=== PATIENT | male | born 1950 | race Caucasian/White ===

== ENCOUNTER → 2019-08-19 | Day surgery (SDC) | payer MEDICARE, BC ==
[~2019-08-19] MED LIST: ACETAMINOPHEN 325 MG TABLET PO PRN; ALBUTEROL SULFATE 2.5 MG/3 ML NEBU. NEB PRN; ATROPINE 0.5 MG/5 ML DISP.SYRIN. IV PRN; BALANCED SALT IRRIG OPHTH SOLN 15 ML BOTTLE. IRR ONE; CATARACT OPHTH GEL 0.5 ML SYRINGE. OS ONE; CHONDROIT-SOD-HYALURONATE KIT. OS ONE; DUTA0.5C PO; EPINEPHrine AMPULE 0.5 MG in BALANCED SALT IRRIG SOLN PLUS 500 ML IO ONE; ERYTHROMYCIN 0.5% OPHTH OINTMENT 1GM TUBE. OS ONE; HYALURONIDASE 75UNITS in LIDOCAINE 2% PF OPHTH 10 ML SYRINGE. OS ONE; KETOROLAC TROMETHAMINE 0.5% OPHTH SOLUTION BOTTLE. ONE; KETOROLAC TROMETHAMINE 0.5% OPHTH SOLUTION BOTTLE. OS SCH; LIDO/EPI IN BSS OPHTH 4 ML SYRINGE OS ONE; MOXIFLOXACIN 0.5% OPHTH SOLUTION 3ML BOTTLE. OS SCH; ONDANSETRON PF 4 MG/2 ML VIAL. IV PRN; POVIDONE-IODINE 5% OPHTH SOLUTION 30ML BOTTLE. OS ONE; PROPOFOL 20 ML IV ONE; TETRACAINE 0.5% OPHTH SOLUTION 4ML BOTTLE. OS ONE; TETRACAINE 0.5% OPHTH SOLUTION 4ML BOTTLE. OU ONE; diphenhydrAMINE 50 MG/ML VIAL IV PRN; prednisoLONE ACETATE 1% OPHTH SUSPENSION 5ML BOTTLE. ONE; prednisoLONE ACETATE 1% OPHTH SUSPENSION 5ML BOTTLE. OS SCH
[2019-08-19] MEDS: MOXIFLOXACIN 0.5% OPHTH SOLUTION 3ML BOTTLE. OS SCH ×3 (10:13→10:28)
--- NOTE | 2019-08-19 11:04 | PDOC4 ---
Phaco/Toric IOL/OS Date of Procedure: Aug 19, 2019 Preoperative Doagnosis: 1. Senile Cataract, OS 2. Corneal astigmatism, OS Postoperative Diagnosis: 1. Senile Cataract, OS 2. Corneal astigmatism, OS Anesthesia: Local with monitored anesthesia care Surgeon: Vane Russ D.O. Procedure: Phacoemulsification with toric intraocular lens implant, OS Findings: 1. Senile Cataract, OS 2. Corneal astigmatism, OS Indications: Worsening vision interfering with patient's lifestyle Narrative: After discussing the risks, complications and alternatives, including but not limited to loss of vision, infection, bleeding, swelling, anesthetic reaction, capsule rupture with vitreous loss, etc., the patient was given topical anesthetic in the eye. The eye was then marked at the 3, 6 and 9 o'clock limbus. Nicol-ocular anesthesia was given and a [place] Balloon was applied for 10 minutes. The patient was transferred to the main operating room and was prepped and draped in the usual sterile fashion and positioned under the microscope. A lid speculum was placed. A temporal clear corneal incision was made with a keratome and viscoelastic was injected into the anterior chamber. A 5.5 mm diameter corneal jose was placed. A side port incision was made. A continuous tear capsulorrhexis was performed, then hydrodissection was accomplished with balanced salt solution. They phacoemulsification needle was placed in the eye and the nucleus was emulsified. The remaining cortical material was removed with the irrigation and aspiration apparatus. The capsule was polished as needed. The posterior capsule was noted to be clean and intact. Viscoelastic was injected into the eye inflating the capsular bag. The cornea was marked at the appropriate meridian for toric IOL implantation. An intraocular lens was injected into the eye, unfolding as desired and was positioned at the appropriate meridian. The wound edges were hydrated with balanced salt solution and there were no leaks. Viscoelastic was injected over the limbal incisions. Antibiotic and steroid were placed on the eye. The lid speculum was removed and a patch and Mccain shield were applied. There were no complications and the patient was taken to the PACU in good condition. VANE RUSS DO Aug 19, 2019 11:03
[2019-08-19 11:15] VITALS: BP 124/80
== END | disposition home or self-care (01) ==
LOC: SURG 08:57
PROVIDERS: ATTEND Ophthalmology
DX: H25.12 Age-related nuclear cataract, left eye (principal); K21.9 Gastro-esophageal reflux disease without esophagitis; F41.9 Anxiety disorder, unspecified; Z87.442 Personal history of urinary calculi
CPT/HCPCS: 66984; J0171; J2704; V2632

== ENCOUNTER → 2019-09-02 | Day surgery (SDC) | payer MEDICARE, BC ==
[~2019-09-02] MED LIST changes: -ACETAMINOPHEN 325 MG TABLET PO PRN; -ALBUTEROL SULFATE 2.5 MG/3 ML NEBU. NEB PRN; -ATROPINE 0.5 MG/5 ML DISP.SYRIN. IV PRN; +CATARACT OPHTH GEL 0.5 ML SYRINGE. OD ONE; -CATARACT OPHTH GEL 0.5 ML SYRINGE. OS ONE; +CHONDROIT-SOD-HYALURONATE KIT. OD ONE; -CHONDROIT-SOD-HYALURONATE KIT. OS ONE; +ERYTHROMYCIN 0.5% OPHTH OINTMENT 1GM TUBE. OD ONE; -ERYTHROMYCIN 0.5% OPHTH OINTMENT 1GM TUBE. OS ONE; +HYALURONIDASE 75UNITS in LIDOCAINE 2% PF OPHTH 10 ML SYRINGE. OD ONE; -HYALURONIDASE 75UNITS in LIDOCAINE 2% PF OPHTH 10 ML SYRINGE. OS ONE; +IPRATRPIUM/ALBUTEROL 0.5/2.5MG 3 ML NEBU. NEB PRN; +IV RINGERS SOLUTION,LACTATED 1,000 ML IV SCH; +KETOROLAC TROMETHAMINE 0.5% OPHTH SOLUTION BOTTLE. OD SCH; -KETOROLAC TROMETHAMINE 0.5% OPHTH SOLUTION BOTTLE. OS SCH; -LIDO/EPI IN BSS OPHTH 4 ML SYRINGE OS ONE; +MIDAZOLAM HCL PF 2 MG/2 ML VIAL. IV ONE; +MOXIFLOXACIN 0.5% OPHTH SOLUTION 3ML BOTTLE. OD SCH; -MOXIFLOXACIN 0.5% OPHTH SOLUTION 3ML BOTTLE. OS SCH; +POVIDONE-IODINE 5% OPHTH SOLUTION 30ML BOTTLE. OD ONE; -POVIDONE-IODINE 5% OPHTH SOLUTION 30ML BOTTLE. OS ONE; +TETRACAINE 0.5% OPHTH SOLUTION 4ML BOTTLE. OD ONE; -TETRACAINE 0.5% OPHTH SOLUTION 4ML BOTTLE. OS ONE; -diphenhydrAMINE 50 MG/ML VIAL IV PRN; +prednisoLONE ACETATE 1% OPHTH SUSPENSION 5ML BOTTLE. OD SCH; -prednisoLONE ACETATE 1% OPHTH SUSPENSION 5ML BOTTLE. OS SCH
[2019-09-02] MEDS: MOXIFLOXACIN 0.5% OPHTH SOLUTION 3ML BOTTLE. OD SCH ×2 (08:39→08:54)
[2019-09-02 09:19] VITALS: BP 142/78
--- NOTE | 2019-09-02 09:23 | PDOC4 ---
Phaco/Toric IOL/OD Date of Procedure: Sep 02, 2019 Preoperative Diagnosis: 1. Senile Cataract, OD 2. Corneal astigmatism, OD Postoperative Diagnosis: 1. Senile Cataract, OD 2. Corneal astigmatism, OD Anesthesia: Local with monitored anesthesia care Surgeon: Vane Russ D.O. Procedure: Phacoemulsification with toric intraocular lens implant, at 10 degrees,OD Findings: 1. Senile Cataract, OD 2. Corneal astigmatism, OD Indications: Worsening vision interfering with patient's lifestyle Narrative: After discussing the risks, complications and alternatives, including but not limited to loss of vision, infection, bleeding, swelling, anesthetic reaction, capsule rupture with vitreous loss, etc., the patient was given a topical anesthetic in the eye. The eye was then marked at 3, 6 and 9:00 limbus. Periocular anesthesia was given and a Honan balloon was applied for 10 minutes. The patient was transferred to the main operating room and was prepped and draped in the usual sterile fashion and positioned under the microscope. A lid speculum was placed. A temporal clear corneal incision was made with a keratome and viscoelastic was injected into the end anterior chamber. A side port incision was made. A 5.5 mm diameter corneal jose was placed. A continuous tear capsulorrhexis was performed, and hydrodissection was accomplished with balanced salt solution. The phacoemulsification needle was placed in the eye and the nucleus was signal supplied. The remaining cortical material was removed with the irrigation and aspiration apparatus. The capsule was polished as needed. The posterior capsule was noted to be clean and intact. Viscoelastic was injected into the eye inflating the capsular bag. The cornea was marked at the appropriate meridian for toric IOL implantation. An intraocular lens was in jected into the eye, unfolding as desired and was positioned in the capsular bag. The viscoelastic was aspirated from the eye and the toric IOL was positioned at the appropriate meridian. The wound edges were hydrated with balanced salt solution and there were no leaks. Viscoelastic was injected over the limbal incisions. Antibiotic and steroids were placed on the eye. The lid speculum was removed and a patch and Mccain shield were applied. There were no complications and the patient was taken to the PACU in good condition. VANE RUSS DO Sep 02, 2019 09:23
== END | disposition home or self-care (01) ==
LOC: SURG 08:00
PROVIDERS: ATTEND Ophthalmology
DX: H25.11 Age-related nuclear cataract, right eye (principal); H52.201 Unspecified astigmatism, right eye; I10 Essential (primary) hypertension; F41.9 Anxiety disorder, unspecified; J44.9 Chronic obstructive pulmonary disease, unspecified; Z79.82 Long term (current) use of aspirin; Z79.899 Other long term (current) drug therapy; Z88.1 Allergy status to other antibiotic agents
CPT/HCPCS: 66984; J0171; J2704; V2787; V2632

== ENCOUNTER 2020-11-07 19:43 | Emergency (ER) | payer MEDICARE, BC ==
[~2020-11-07] VITALS: Ht 175.3 cm; Wt 91.0 kg
[~2020-11-07 19:43] MED LIST changes: -BALANCED SALT IRRIG OPHTH SOLN 15 ML BOTTLE. IRR ONE; -CATARACT OPHTH GEL 0.5 ML SYRINGE. OD ONE; -CHONDROIT-SOD-HYALURONATE KIT. OD ONE; -EPINEPHrine AMPULE 0.5 MG in BALANCED SALT IRRIG SOLN PLUS 500 ML IO ONE; -ERYTHROMYCIN 0.5% OPHTH OINTMENT 1GM TUBE. OD ONE; -HYALURONIDASE 75UNITS in LIDOCAINE 2% PF OPHTH 10 ML SYRINGE. OD ONE; -IPRATRPIUM/ALBUTEROL 0.5/2.5MG 3 ML NEBU. NEB PRN; -IV RINGERS SOLUTION,LACTATED 1,000 ML IV SCH; -KETOROLAC TROMETHAMINE 0.5% OPHTH SOLUTION BOTTLE. OD SCH; -KETOROLAC TROMETHAMINE 0.5% OPHTH SOLUTION BOTTLE. ONE; -MIDAZOLAM HCL PF 2 MG/2 ML VIAL. IV ONE; -MOXIFLOXACIN 0.5% OPHTH SOLUTION 3ML BOTTLE. OD SCH; -ONDANSETRON PF 4 MG/2 ML VIAL. IV PRN; -POVIDONE-IODINE 5% OPHTH SOLUTION 30ML BOTTLE. OD ONE; -PROPOFOL 20 ML IV ONE; -TETRACAINE 0.5% OPHTH SOLUTION 4ML BOTTLE. OD ONE; -TETRACAINE 0.5% OPHTH SOLUTION 4ML BOTTLE. OU ONE; -prednisoLONE ACETATE 1% OPHTH SUSPENSION 5ML BOTTLE. OD SCH; -prednisoLONE ACETATE 1% OPHTH SUSPENSION 5ML BOTTLE. ONE
[2020-11-07] MEDS ORDERED: CONTRAST GIVEN. MC PRN (20:30)
[2020-11-07] MEDS ORDERED: IOHEXOL 300 MG/ML 75 ML VIAL. IV ONE (20:30)
[2020-11-07 20:44] LABS: CLARITY,URINE BLOODY; COLOR,URINE RED; RBC,URINE TNTC /HPF (0-2); WBC,URINE RARE /HPF (0-4)
[2020-11-07 20:45] LABS: BACTERIA,URINE FEW /HPF (0-FEW); SQUAMOUS EPITHELIAL CELL,UR OCC /LPF
[2020-11-07] MEDS ORDERED: IV RINGERS SOLUTION,LACTATED 1,000 ML IV ONE (20:45)
--- NOTE | 2020-11-07 21:02 | PHYS DOC ---
Past History Past Medical History: Kidney Stones Past Surgical History: Other Additional Past Surgical Histo: TURP Alcohol Use: None Adult General Chief Complaint Chief Complaint: BLOOD IN URINE HPI HPI Patient is a 70-year-old male with a past medical history significant for TURP 2 years ago who presents to the emergency department with a chief complaint of hematuria. States he has been doing well and having no issues up until this morning. States that when he woke up this morning and went to the bathroom to urinate noticed that it was pink. And over the course of the day became more red. States that just before coming to the emergency department it was a high volume of bright red blood. Denies any headaches, lightheadedness, chest pain, shortness of breath, abdominal pain, pelvic pain, dysuria, penile or scrotal pain, blood in the stool. Denies any recent travels, traumas, illnesses, fevers, known ill contacts. Denies any blood thinner use. States outside of the hematuria he otherwise feels well. Denies ever smoking cigarettes or working with chemicals. Review of Systems Review of Systems Review of systems otherwise unremarkable except noted in HPI Current Medications Current Medications Current Medications Medications (Trade) Dose Ordered Sig/Hayes Start Time Stop Time Status Last Admin Dose Admin Info (Do NOT chart on this entry -- for MONITORING) 1 each PRN DAILY PRN 11/07/20 20:30 11/09/20 20:29 Iohexol (Omnipaque 300 Mg/ml) 75 ml 1X ONCE 11/07/20 20:30 11/07/20 20:31 DC Lactated Ringer's 1,000 ml @ 1,000 mls/hr 1X ONCE 11/07/20 20:45 11/07/20 21:44 11/07/20 20:45 1,000 MLS/HR Allergies Allergies Allergies Coded Allergies Type Severity Reaction Last Updated Verified No Known Drug Allergies 11/07/20 No Physical Exam Physical Exam Constitutional: Well developed, well nourished, no acute distress, non-toxic appearance. [] HENT: Normocephalic, atraumatic, bilateral external ears normal, oropharynx moist, no oral exudates, nose normal. [] Eyes: conjunctiva normal, no discharge. [] Neck: Normal range of motion, Cardiovascular:Heart rate regular rhythm, no murmur [] Lungs & Thorax: Bilateral breath sounds clear to auscultation [] Abdomen: soft, no tenderness, no masses, no pulsatile masses. [] Skin: Warm, dry, no erythema, no rash. [] Back: No tenderness, no CVA tenderness. [] Extremities: No tenderness, no cyanosis, no clubbing, ROM intact, no edema. [] Neurologic: Alert and oriented X 3, no focal deficits noted. [] Psychologic: Affect normal, judgement normal, mood normal. [] Current Patient Data Vital Signs Vital Signs Date Time Temp Pulse Resp B/P (MAP) Pulse Ox O2 Delivery O2 Flow Rate FiO2 11/07/20 20:13 98.4 77 16 148/80 (102) 98 Lab Results Laboratory Tests Test 11/07/20 20:20 Urine Collection Type Unknown Urine Color Red Urine Clarity Bloody Urine pH Urine Specific [place] Urine Protein (NEG-TRACE) Urine Glucose (UA) mg/dL (NEG) Urine Ketones (Stick) mg/dL (NEG) Urine Blood (NEG) Urine Nitrite (NEG) Urine Bilirubin (NEG) Urine Urobilinogen Dipstick mg/dL (0.2 mg/dL) Urine Leukocyte Esterase (NEG) Urine RBC Tntc /HPF (0-2) Urine WBC Rare /HPF (0-4) Urine Squamous Epithelial Cells Occ /LPF Urine Bacteria Few /HPF (0-FEW) EKG EKG [] Radiology/Procedures Radiology/Procedures []CT abdomen and pelvis with contrast PQRS statement: CT scans at this facility use dose reduction including either automated exposure control, iterative reconstructions, and /or weight based radiation dosing via mA and kV modification when appropriate to reduce radiation dose to as low as reasonably achievable. Contrast: 75 mL Omnipaque 300 intravenous contrast HISTORY: Massive gross hematuria. Abdomen findings: Lung bases are unremarkable. Lower thoracic and lumbar disc disease and lumbar facet arthropathy disc osteophytes and facet spurring. Tiny gallstones. 3 cm fluid density cyst right hepatic lobe density of 8 units. 3.5 cm fluid density cyst right hepatic lobe image 15 density of 8 units. There are other smaller liver cysts as well. 2 small hypodensities left renal lower pole which are too small to characterize due to volume averaging of surrounding enhancing renal parenchyma. Mild bilateral renal hydronephrosis renal pelvis diameter is artery each 1.3 cm. Adrenals, pancreas, spleen unremarkable. 3 center fatty umbilical abdominal wall hernia. No obstruction or inflammation GI tract. Mild calcified plaque aorta and iliac arteries. No abdominal fluid or adenopathy. Pelvis findings: Irregular hyperdensity along the posterior lumen of the bladder likely hematoma, more inferiorly along the bladder trigone there is irregular enhancement of the urothelium, while some of this could be protrusion of the enlarged based prostate into the floor the bladder, a irregular plaque-like enhancing urothelial lesion is also suspected raising suspicion of neoplasia. Prostate transverse diameter 6 cm. Rectum and bones are unremarkable. No fluid or adenopathy in the pelvis. IMPRESSION: 1. Hematoma layering dependently within the bladder. There is irregular enhancement of the urothelium at the bladder trigone raising suspicion of urothelial neoplasia. Consider further urologic assessment with cystoscopy. 2. 2 indeterminate left renal lower pole hypodense lesions too small to characterize due to surrounding enhancing renal parenchyma. This could be further assessed with outpatient MR imaging. 3. Enlarged prostate. 4. Small gallstones. Electronically signed by: Mauri Ocampo MD (11/07/2020 9:54 PM) [facility] Heart Score C/O Chest Pain: No Risk Factors: Risk Factors: DM, Current or recent (<one month) smoker, HTN, HLP, family history of CAD, obesity. Risk Scores: Risk Factors: DM, Current or recent (<one month) smoker, HTN, HLP, family history of CAD, obesity. Course & Med Decision Making Course & Med Decision Making Patient is a 70-year-old male who presents with painless hematuria times a day Vital signs not concerning. Physical exam noted above. Patient denies any need for pain or nausea medication at this time. Laboratory analysis not concerning. Urinalysis with hematuria. CT notable for irregular enhancement of the urothelium at the bladder trigone suspicious for urothelial neoplasia as well as large hematoma layering within the bladder and 2 indeterminate left renal pole hypodense lesions too small to characterize an enlarged prostate. Patient continues to urinate gross hematuria in the emergency department, now with clots. Concerned that it could cause obstruction. Discussed all findings with family and recommended admission to the hospital for continued evaluation and treatment by the urologist. Patient and family grateful, verbalized understanding and agreed with plan of admission to [facility] to see their urologist for continued evaluation and treatment. [] Dragon Disclaimer Dragon Disclaimer This electronic medical record was generated, in whole or in part, using a voice recognition dictation system. Departure Departure: Impression: Primary Impression: Gross hematuria Additional Impression: Hematoma of bladder wall Disposition: 02 SHORT TERM HOSPITAL Condition: STABLE Referrals: FLORENTIN HAIDER (PCP) Problem Qualifiers QI BIRD MD November 07, 2020 21:02
[2020-11-07 21:09] LABS: HEMATOCRIT 47.5 % (39.0-53.0); HEMOGLOBIN 15.9 g/dL (13.0-17.5); RED BLOOD COUNT 5.45 x10^6/uL (4.30-5.70); RED CELL DISTRIBUTION WIDTH 13.4 % (11.5-14.5); WHITE BLOOD COUNT 8.3 x10^3/uL (4.0-11.0)
[2020-11-07 21:13] LABS: CALCIUM 8.9 mg/dL (8.5-10.1); CREATININE 1.1 mg/dL (0.7-1.3); GFR 66.6; POTASSIUM 3.8 mmol/L (3.5-5.1)
[2020-11-07 21:21] LABS: ALBUMIN 3.9 g/dL (3.4-5.0); ALBUMIN/GLOBULIN RATIO 1.1 (1.0-1.7); TOTAL BILIRUBIN 0.5 mg/dL (0.2-1.0); TOTAL PROTEIN 7.5 g/dL (6.4-8.2)
--- NOTE | 2020-11-07 21:56 | RAD ---
CT abdomen and pelvis with contrast PQRS statement: CT scans at this facility use dose reduction including either automated exposure cont rol, iterative reconstructions, and /or weight based radiation dosing via mA and kV modification when appropriate to reduce radiation dose to as low as reasonably achievable. Contrast: 75 mL Omnipaque 300 intravenous contrast HISTORY: Massive gross hematuria. Abdomen findings: Lung bases are unremarkable. Lower thoracic and lumbar disc disease and lumbar face t arthropathy disc osteophytes and facet spurring. Tiny gallstones. 3 cm fluid density cyst right hep atic lobe density of 8 units. 3.5 cm fluid density cyst right hepatic lobe image 15 density of 8 unit s. There are other smaller liver cysts as well. 2 small hypodensities left renal lower pole which are too small to characterize due to volume averaging of surrounding enhancing renal parenchyma. Mild bi lateral renal hydronephrosis renal pelvis diameter is artery each 1.3 cm. Adrenals, pancreas, spleen unremarkable. 3 center fatty umbilical abdominal wall hernia. No obstruction or inflammation GI tract . Mild calcified plaque aorta and iliac arteries. No abdominal fluid or adenopathy. Pelvis findings: Irregular hyperdensity along the posterior lumen of the bladder likely hematoma, mor e inferiorly along the bladder trigone there is irregular enhancement of the urothelium, while some o f this could be protrusion of the enlarged based prostate into the floor the bladder, a irregular romana que-like enhancing urothelial lesion is also suspected raising suspicion of neoplasia. Prostate trans verse diameter 6 cm. Rectum and bones are unremarkable. No fluid or adenopathy in the pelvis. IMPRESSION: 1. Hematoma layering dependently within the bladder. There is irregular enhancement of the urothelium at the bladder trigone raising suspicion of urothelial neoplasia. Consider further urologic assessme nt with cystoscopy. 2. 2 indeterminate left renal lower pole hypodense lesions too small to characterize due to surroundi ng enhancing renal parenchyma. This could be further assessed with outpatient MR imaging. 3. Enlarged prostate. 4. Small gallstones. Electronically signed by: Mauri Ocampo MD (11/07/2020 9:54 PM) [facility]
[2020-11-07 23:27] VITALS: BP 156/68
[2020-11-07] MEDS ORDERED: IV NORMAL SALINE 50ML 50 ML ONE (23:55)
[2020-11-07] MEDS ORDERED: cefTRIAXone SODIUM 1 GM VIAL ONE (23:55)
== END 2020-11-08 00:34 | disposition short-term general hospital (02) ==
LOC: ER 19:43
DX: S37.22XA Contusion of bladder, initial encounter (principal); R31.0 Gross hematuria; Z87.442 Personal history of urinary calculi; X58.XXXA Exposure to other specified factors, initial encounter; Y93.89 Activity, other specified; Y92.89 Other specified places as the place of occurrence of the external cause; Y99.8 Other external cause status
CPT/HCPCS: 36415; 74177; 80053; 81001; 85027; 85610; 85730; 96361; 96365; 99285; J0696; J7120; Q9967

== ENCOUNTER → 2020-11-17 | Outpatient (CLI) | payer MEDICARE, BC ==
[2020-11-07 23:27] VITALS: BP 156/68
[~2020-11-17] MED LIST changes: +IOHEXOL 300 MG/ML 75 ML VIAL. IV ONE
--- NOTE | 2020-11-17 14:11 | RAD ---
PQRS Compliance Statement: One or more of the following individualized dose reduction techniques were utilized for this examinat ion: 1. Automated exposure control 2. Adjustment of the mA and/or kV according to patient size 3. Use of iterative reconstruction technique CT ABDOMEN+PELVIS WO+W 11/17/2020 10:34 AM Indication: Gross hematuria, enlarged prostate COMPARISON: CT abdomen/pelvis 11/04/2020 TECHNIQUE: Multiple axial CT images of the abdomen and pelvis were obtained before and after administ ration of intravenous contrast. Coronal and sagittal reformats are provided. FINDINGS: Lung bases are clear. Heart size within normal limits. Small hiatal hernia. Stable hypodense lesions within the hepatic parenchyma suggestive of simple cysts. Cholelithiasis. Spleen, adrenal glands and pancreas are normal in appearance. The abdominal aorta is normal in course and caliber. There are no pathologically enlarged lymph nodes in the abdomen and pelvis. There is no abdominal free fluid. Ther e is no free intraperitoneal air. Mild calcified plaque involving the abdominal aorta. Umbilical marcos ia containing fat measuring 1.7 cm appear stable. Mild to moderate colonic diverticulosis. Small and large bowel are normal in caliber. There is no evidence for bowel obstruction. There are no pericolon ic inflammatory changes. A normal, nondilated appendix is visualized without adjacent inflammatory ch anges. There is a simple cyst in inferior pole the left kidney measuring 1.4 cm. There is an additional part ly exophytic cyst at the inferior pole the left kidney measuring 0.9 cm (9 Hounsfield units). There i s no hydronephrosis. Interval resolution of previously seen hematoma within the urinary bladder. Ther e is irregularity at the trigone of the bladder without obstruction of the ureterovesicular junction. Prostate gland is enlarged measuring 5.7 x 6.0 cm in ions. 5.7 x 6.0 cm in no calculi identified wit hin the kidneys, ureters or urinary bladder. There is no urothelial thickening involving the upper tr acts. No suspicious osseous abnormality is identified. IMPRESSION: 1. Prostatomegaly with irregularity at the trigone of the urinary bladder which could reflect benign prostatic hyperplasia. Correlate with prostate specific antigen. 2. Interval resolution of hematoma within the urinary bladder. Cystoscopy could be of benefit for fur ther evaluation of the trigone. 3. No suspicious urothelial thickening involving the upper tracts of the genitourinary system. 4. Fat-containing umbilical hernia. 5. Cholelithiasis. 6. Low-density lesions at the inferior pole the left kidney are favored to represent cysts given flui d attenuation. 7. Small hiatal hernia. Electronically signed by: Shi Caceres MD (11/17/2020 2:09 PM) [id number]
== END ==
LOC: CT 09:22
PROVIDERS: ATTEND Urology
DX: K44.9 Diaphragmatic hernia without obstruction or gangrene (principal); K80.20 Calculus of gallbladder without cholecystitis without obstruction; R31.9 Hematuria, unspecified; N40.0 Benign prostatic hyperplasia without lower urinary tract symptoms; K42.9 Umbilical hernia without obstruction or gangrene; I70.0 Atherosclerosis of aorta
CPT/HCPCS: 74178; Q9967